=== PATIENT | female | born 1995 | race Caucasian/White ===

== ENCOUNTER 2019-06-19 18:22 | Emergency (ER) | payer OTHER ==
[~2019-06-19] VITALS: Ht 152.4 cm; Wt 86.4 kg
[2019-06-19 18:34] VITALS: BP 132/88; TEMP 97.9
[2019-06-19] MEDS ORDERED: ADDERALL XR20 MG PO (18:39)
[2019-06-19 19:12] LABS: COLLECTION METHOD CLEAN CATCH
[2019-06-19 19:43] LABS: MUCOUS Present /lpf; PH 5 (5-8); URINE APPEARANCE Cloudy; URINE BACTERIA Rare /hpf; URINE BILIRUBIN Negative (NEGATIVE); URINE BLOOD 3+ (NEGATIVE); URINE CALCIUM OXALATE CRYSTAL Present /hpf; URINE COLOR Yellow; URINE GLUCOSE Negative (NEGATIVE); URINE KETONE Trace (NEGATIVE); URINE LEUKOCYTE ESTERASE 3+ (NEGATIVE); URINE NITRATE Negative (NEGATIVE); URINE PROTEIN(semi-quant) 2+ (NEGATIVE); URINE RBC >50 /hpf; URINE UROBILINOGEN Negative (NEGATIVE)
[2019-06-19] MEDS ORDERED: CEFTIN 250250 MG/TAB PO (19:56)
[2019-06-19 20:34] VITALS: PULSE 85
== END 2019-06-19 20:34 | disposition home or self-care (01) ==
LOC: COL.ER 18:22
PROVIDERS: Nurse Practitioner
DX: N39.0 Urinary tract infection, site not specified (principal); J45.909 Unspecified asthma, uncomplicated; F17.290 Nicotine dependence, other tobacco product, uncomplicated; F90.9 Attention-deficit hyperactivity disorder, unspecified type; Z88.2 Allergy status to sulfonamides; Z90.89 Acquired absence of other organs

== ENCOUNTER 2019-06-22 15:28 | Emergency (ER) | payer OTHER ==
[~2019-06-22] VITALS: Ht 152.4 cm; Wt 86.4 kg
[~2019-06-22 15:28] MED LIST: ADDERALL XR20 MG PO; CEFTIN 250250 MG/TAB PO
[2019-06-22 17:11] LABS: COLLECTION METHOD CLEAN CATCH
[2019-06-22] MEDS ORDERED: ZOFRAN ODT4 MG PO (17:12)
[2019-06-22 17:20] LABS: MUCOUS Present /lpf; PH 9 (5-8); URINE APPEARANCE Hazy; URINE BACTERIA Moderate /hpf; URINE BILIRUBIN Negative (NEGATIVE); URINE BLOOD Negative (NEGATIVE); URINE COLOR Yellow; URINE GLUCOSE Negative (NEGATIVE); URINE KETONE Negative (NEGATIVE); URINE LEUKOCYTE ESTERASE Trace (NEGATIVE); URINE NITRATE Negative (NEGATIVE); URINE PROTEIN(semi-quant) Negative (NEGATIVE); URINE RBC 0-2 /hpf; URINE UROBILINOGEN Negative (NEGATIVE)
[2019-06-22] MEDS ORDERED: PHENERGAN 25 TA25 MG PO (19:15)
[2019-06-22 20:03] VITALS: BP 122/76; PULSE 87; TEMP 98.6
== END 2019-06-22 19:45 | disposition home or self-care (01) ==
LOC: COL.ER 15:28
PROVIDERS: Physician Assistant
DX: N30.00 Acute cystitis without hematuria (principal); F17.210 Nicotine dependence, cigarettes, uncomplicated; Z90.89 Acquired absence of other organs; Z90.49 Acquired absence of other specified parts of digestive tract
CPT/HCPCS: J2550

== ENCOUNTER 2019-09-06 17:57 | Emergency (ER) | payer OTHER ==
[~2019-09-06] VITALS: Ht 152.4 cm; Wt 84.5 kg
[~2019-09-06 17:57] MED LIST changes: +PHENERGAN 25 TA25 MG PO; +ZOFRAN ODT4 MG PO
[2019-09-06 18:08] VITALS: TEMP 99.2
[2019-09-06 18:27] LABS: COLLECTION METHOD CLEAN CATCH
[2019-09-06 18:39] LABS: BASO % 0.2 % (0.0-2.0); EOS % 0.1 % (0-4.0); GRAN # 7.5 (1.4-6.5); GRAN % 83.3 % (42.2-75.2); HEMATOCRIT 42.2 % (37.0-47.0); HEMOGLOBIN 14.9 g/dl (12.5-16.0); LYMPH # 0.8 (1.2-3.4); LYMPH % 9.3 % (20.0-51.0); MEAN CELL VOLUME 92 fl (80.0-100.0); MEAN CORPUSCULAR HEMOGLOBIN 32 pg (27.0-31.0); MEAN CORPUSCULAR HGB CONC 35 g/dl (33.0-37.0); MEAN PLATELET VOLUME 9.5 fl (7.4-10.4); MONO # 0.6 (0.1-0.6); MONO % 6.9 % (1.7-9.3); PLATELET COUNT 300 K/mm3 (130-400); RED BLOOD COUNT 4.61 M/mm3 (4.10-5.30); REDCELL DISTRIBUTION WIDTH-CV 12.1 % (11.5-14.5)
[2019-09-06 18:49] LABS: ALBUMIN 4.5 gm/dL (3.5-5.0); BILIRUBIN,TOTAL 0.5 mg/dL (0.0-1.0); C-REACTIVE PROTEIN 2.2 mg/dL (0.0-0.9); CALCIUM 9.4 mg/dL (8.4-10.2); CREATININE, serum 0.51 (0.52-1.25); POTASSIUM 3.5 mmol/L (3.4-5.0); TOTAL PROTEIN 7.5 gm/dL (6.4-8.2)
[2019-09-06 18:56] LABS: PH 5 (5-8); URINE APPEARANCE Hazy; URINE COLOR Amber; URINE GLUCOSE Negative (NEGATIVE); URINE PROTEIN(semi-quant) 1+ (NEGATIVE)
[2019-09-06 18:57] LABS: URINE BILIRUBIN Positive (NEGATIVE); URINE BLOOD Negative (NEGATIVE); URINE KETONE 1+ (NEGATIVE); URINE LEUKOCYTE ESTERASE Negative (NEGATIVE); URINE NITRATE Negative (NEGATIVE); URINE UROBILINOGEN Negative (NEGATIVE)
[2019-09-06 19:22] LABS: MUCOUS Present /lpf; URINE BACTERIA Occasional /hpf
[2019-09-06 20:55] VITALS: BP 110/75; PULSE 88
[2019-09-06] MEDS ORDERED: ZOFRAN ODT4 MG PO (21:05)
== END 2019-09-06 21:15 | disposition home or self-care (01) ==
LOC: COL.ER 17:57
PROVIDERS: Nurse Practitioner
DX: R19.7 Diarrhea, unspecified (principal); R10.9 Unspecified abdominal pain; J45.909 Unspecified asthma, uncomplicated; F17.210 Nicotine dependence, cigarettes, uncomplicated; Z90.89 Acquired absence of other organs; Z88.2 Allergy status to sulfonamides
CPT/HCPCS: J1885; J2270; J2405; J2550; J7030

== ENCOUNTER 2019-12-31 06:52 | Emergency (ER) | payer OTHER ==
[~2019-12-31] VITALS: Ht 152.4 cm; Wt 84.1 kg
[2019-12-31 07:01] VITALS: BP 126/81; TEMP 98.9
[2019-12-31] MEDS ORDERED: NORCO 325 MG-51 TAB PO (07:54)
[2019-12-31] MEDS ORDERED: CRUTCHES MC (07:54)
[2019-12-31 08:47] VITALS: PULSE 83
== END 2019-12-31 08:42 | disposition home or self-care (01) ==
LOC: COL.ER 06:52
DX: S96.911A Strain of unspecified muscle and tendon at ankle and foot level, right foot, initial encounter (principal); S90.31XA Contusion of right foot, initial encounter; X50.1XXA Overexertion from prolonged static or awkward postures, initial encounter; Y92.828 Other wilderness area as the place of occurrence of the external cause

== ENCOUNTER 2020-02-26 08:24 | Emergency (ER) | payer OTHER ==
[~2020-02-26] VITALS: Ht 154.9 cm; Wt 84.1 kg
[~2020-02-26 08:24] MED LIST changes: +CRUTCHES MC; +NORCO 325 MG-51 TAB PO
[2020-02-26 08:43] VITALS: TEMP 98.6
[2020-02-26 10:16] LABS: COLLECTION METHOD CLEAN CATCH
[2020-02-26 10:28] LABS: MUCOUS Present /lpf; PH 7 (5-8); URINE APPEARANCE Hazy; URINE BACTERIA None Seen /hpf; URINE BILIRUBIN Negative (NEGATIVE); URINE BLOOD Negative (NEGATIVE); URINE COLOR Yellow; URINE GLUCOSE Negative (NEGATIVE); URINE KETONE Negative (NEGATIVE); URINE LEUKOCYTE ESTERASE Negative (NEGATIVE); URINE NITRATE Negative (NEGATIVE); URINE PROTEIN(semi-quant) Negative (NEGATIVE); URINE RBC 0-2 /hpf; URINE UROBILINOGEN Negative (NEGATIVE)
[2020-02-26 13:07] VITALS: BP 120/79; PULSE 76
== END 2020-02-26 13:09 | disposition home or self-care (01) ==
LOC: COL.ER 08:24
PROVIDERS: Nurse Practitioner Primary Care
DX: N92.6 Irregular menstruation, unspecified (principal); F17.290 Nicotine dependence, other tobacco product, uncomplicated

== ENCOUNTER 2020-05-08 11:57 | Emergency (ER) | payer OTHER ==
[~2020-05-08] VITALS: Ht 154.9 cm; Wt 86.4 kg
[2020-05-08] MEDS ORDERED: PREDNISONE20 MG PO (12:15)
[2020-05-08] MEDS ORDERED: ZITHROMAX Z PA250 MG PO (12:15)
[2020-05-08 12:22] VITALS: TEMP 97.9
[2020-05-08] MEDS ORDERED: ADDERALL10 MG PO (12:26)
[2020-05-08 13:36] VITALS: BP 119/85; PULSE 71
== END 2020-05-08 13:43 | disposition home or self-care (01) ==
LOC: COL.ER 11:57
DX: J40 Bronchitis, not specified as acute or chronic (principal); Z20.828 Contact with and (suspected) exposure to other viral communicable diseases; Z88.2 Allergy status to sulfonamides

== ENCOUNTER → 2020-07-23 | Outpatient (CLI) | payer OTHER ==
[~2020-07-23] MED LIST changes: +ADDERALL10 MG PO; +PREDNISONE20 MG PO; +ZITHROMAX Z PA250 MG PO
== END ==
LOC: COL.RAD 07:30
DX: R41.82 Altered mental status, unspecified (principal)
CPT/HCPCS: A9585

== ENCOUNTER → 2020-08-12 | Outpatient (CLI) | payer OTHER | LOC: COL.RAD 13:40 | DX: R10.9 Unspecified abdominal pain (principal); Z87.442 Personal history of urinary calculi ==

== ENCOUNTER → 2020-08-20 | Outpatient (CLI) | payer OTHER | LOC: COL.RAD 13:00 | DX: R31.9 Hematuria, unspecified (principal); R10.9 Unspecified abdominal pain; R39.11 Hesitancy of micturition; Z90.49 Acquired absence of other specified parts of digestive tract ==

== ENCOUNTER 2020-09-11 09:55 | Emergency (ER) | payer OTHER ==
[~2020-09-11] VITALS: Ht 154.9 cm; Wt 103.6 kg
[2020-09-11 10:03] VITALS: TEMP 98.7
[2020-09-11 10:17] LABS: COLLECTION METHOD CLEAN CATCH
[2020-09-11 10:42] LABS: URINE COLOR Yellow
[2020-09-11 10:43] LABS: PH 9 (5-8); URINE APPEARANCE Cloudy
[2020-09-11 10:44] LABS: URINE BILIRUBIN Negative (NEGATIVE); URINE BLOOD Negative (NEGATIVE); URINE GLUCOSE Negative (NEGATIVE); URINE KETONE Negative (NEGATIVE); URINE LEUKOCYTE ESTERASE Negative (NEGATIVE); URINE NITRATE Negative (NEGATIVE); URINE PROTEIN(semi-quant) 1+ (NEGATIVE); URINE UROBILINOGEN Negative (NEGATIVE)
[2020-09-11 10:45] LABS: SQUAMOUS EPITHELIAL 20-50 /hpf; URINE RBC 0-2 /hpf
[2020-09-11 10:46] LABS: MUCOUS Present /lpf; URINE BACTERIA Occasional /hpf
[2020-09-11 11:13] LABS: BASO % 0.4 % (0.0-2.0); EOS % 0.4 % (0-4.0); GRAN # 4.7 (1.4-6.5); GRAN % 69.8 % (42.2-75.2); HEMATOCRIT 39.2 % (37.0-47.0); HEMOGLOBIN 13.9 g/dl (12.5-16.0); LYMPH # 1.6 (1.2-3.4); MEAN CELL VOLUME 89 fl (80.0-100.0); MEAN CORPUSCULAR HEMOGLOBIN 32 pg (27.0-31.0); MEAN CORPUSCULAR HGB CONC 36 g/dl (33.0-37.0); MEAN PLATELET VOLUME 9.2 fl (7.4-10.4); MONO # 0.4 (0.1-0.6); MONO % 6.1 % (1.7-9.3); PLATELET COUNT 300 K/mm3 (130-400); RED BLOOD COUNT 4.41 M/mm3 (4.10-5.30); REDCELL DISTRIBUTION WIDTH-CV 12.2 % (11.5-14.5)
[2020-09-11 11:34] LABS: ALBUMIN 4.4 gm/dL (3.5-5.0); BILIRUBIN,TOTAL 0.4 mg/dL (0.0-1.0); C-REACTIVE PROTEIN 0.6 mg/dL (0.0-0.9); CALCIUM 9.1 mg/dL (8.4-10.2); CREATININE, serum 0.57 (0.52-1.25); POTASSIUM 3.9 mmol/L (3.4-5.0); TOTAL PROTEIN 7.7 gm/dL (6.4-8.2)
[2020-09-11 12:55] VITALS: BP 128/70; PULSE 69
== END 2020-09-11 13:00 | disposition home or self-care (01) ==
LOC: COL.ER 09:55
PROVIDERS: Physician Assistant
DX: O26.891 Other specified pregnancy related conditions, first trimester (principal); R10.31 Right lower quadrant pain; R30.0 Dysuria; R50.9 Fever, unspecified; R11.0 Nausea; F17.290 Nicotine dependence, other tobacco product, uncomplicated; Z3A.00 Weeks of gestation of pregnancy not specified; Z88.2 Allergy status to sulfonamides
CPT/HCPCS: J2405; J7030

== ENCOUNTER 2022-03-24 12:21 | Emergency (ER) | payer OTHER ==
[~2022-03-24] VITALS: Ht 154.9 cm; Wt 99.5 kg
[2022-03-24 12:40] VITALS: BP 127/90; TEMP 99.2
[2022-03-24 13:10] LABS: BASO % 0.7 % (0.0-2.0); EOS # 0.1 K/mm3 (0.0-0.7); EOS % 1.4 % (0.0-4.0); GRAN # 3.3 K/mm3 (1.4-6.5); HEMATOCRIT 39.7 % (37.0-47.0); HEMOGLOBIN 14.3 g/dl (12.5-16.0); LYMPH # 1.7 K/mm3 (1.2-3.4); LYMPH % 30.2 % (20.0-51.0); MEAN CELL VOLUME 90 fl (80.0-100.0); MEAN CORPUSCULAR HEMOGLOBIN 32 pg (27-31); MEAN CORPUSCULAR HGB CONC 36 g/dl (33.0-37.0); MEAN PLATELET VOLUME 10.2 fl (7.4-10.4); MONO # 0.5 K/mm3 (0.1-0.6); PLATELET COUNT 288 K/mm3 (130-400); RED BLOOD COUNT 4.42 M/mm3 (4.10-5.30); REDCELL DISTRIBUTION WIDTH-CV 12.3 % (11.5-14.5)
[2022-03-24 13:16] LABS: COLLECTION METHOD CLEAN CATCH
[2022-03-24 13:26] LABS: URINE APPEARANCE Hazy (CLEAR/HAZY); URINE COLOR Yellow (YELLOW)
[2022-03-24 13:27] LABS: URINE BLOOD 3+ (NEGATIVE); URINE GLUCOSE Negative (NEGATIVE); URINE KETONE 2+ (NEGATIVE); URINE NITRATE Negative (NEGATIVE); URINE PROTEIN(semi-quant) TRACE (NEGATIVE); URINE UROBILINOGEN 0.2 E.U/dL (0.2-1.0)
[2022-03-24 13:35] LABS: MUCOUS Present (NOT PRESENT); SQUAMOUS EPITHELIAL 0-2 /hpf (0-10); URINE BACTERIA None Seen /hpf (NONE SEEN); URINE RBC >50 /hpf (0-2)
[2022-03-24] MEDS ORDERED: LYSTEDA650 MG PO (13:49)
[2022-03-24 14:23] VITALS: PULSE 79
== END 2022-03-24 14:23 | disposition home or self-care (01) ==
LOC: COL.ER 12:21
PROVIDERS: Emergency Medicine
DX: N92.0 Excessive and frequent menstruation with regular cycle (principal)